=== PATIENT | female | born 1985 ===

== ENCOUNTER → 2017-01-12 | Outpatient (CLI) | payer MEDICAID | LOC: FIMAGING 08:44 | PROVIDERS: ATTEND Obstetrics & Gynecology | DX: O09.33 Supervision of pregnancy with insufficient antenatal care, third trimester (principal); O99.333 Smoking (tobacco) complicating pregnancy, third trimester; Z3A.30 30 weeks gestation of pregnancy; Z82.79 Family history of other congenital malformations, deformations and chromosomal abnormalities ==

== ENCOUNTER 2017-03-05 22:45 | Inpatient (IN) | payer MEDICAID ==
[2017-03-05] MEDS ORDERED: OXYTOCIN/RINGERS LACTATE 20 UNIT/1,000 ML BAG IV ONE (23:03)
[2017-03-05] MEDS ORDERED: TERBUTALINE SULFATE 1 MG/ML VIAL IV PRN (23:07)
[2017-03-05] MEDS ORDERED: OXYTOCIN/RINGERS LACTATE 1,000 ML IV PRN (23:07)
[2017-03-05] MEDS ORDERED: EPSOM SALT 454 GM TP PRN (23:07)
[2017-03-05] MEDS ORDERED: LR 1,000 ML IV PRN (23:07)
[2017-03-05] MEDS ORDERED: OLIVE OIL 118 ML BTL MISC PRN (23:07)
[2017-03-05 23:23] LABS: % IMMATURE GRANULYOCYTES 0.7 % (0.0-1.1); ABSOLUTE IMMATURE GRANULOCYTES 0.11 10^3/uL (0.00-0.10); ADD DIFF? NO; ADD MORPH? NO; ADD SCAN? NO; ATYPICAL LYMPHOCYTE FLAG 10 (0-99); FRAGMENT RBC FLAG 0 (0-99); HEMATOCRIT 35.8 % (38.0-47.0); HEMOGLOBIN 12.4 g/dL (12.6-16.3); LEFT SHIFT FLG 0 (0-99); LIPEMIA HEMOLYSIS FLAG 90 (0-99); MEAN CELL HEMOGLOBIN 30.2 pg (27.9-34.1); MEAN CELL HEMOGLOBIN CONCENTR. 34.6 g/dL (32.4-36.7); MEAN CELL VOLUME 87.1 fL (81.5-99.8); MEAN PLATELET VOLUME 12.6 fL (8.7-11.7); PLATELET CLUMPS FLAG 0 (0-99); PLATELET COUNT 174 10^3/uL (150-400); RED BLOOD CELL COUNT 4.11 10^6/uL (4.18-5.33); RED CELL DISTRIBUTION WIDTH 12.5 % (11.5-15.2)
[2017-03-05] MEDS ORDERED: HYDROCORTISONE 0.5% CREAM TP PRN (23:51)
[2017-03-05] MEDS ORDERED: HYDROCODONE/APAP 5/325 TAB PO PRN (23:51)
[2017-03-05] MEDS ORDERED: SIMETHICONE 80 MG TAB CHEW PO PRN (23:51)
[2017-03-05] MEDS ORDERED: ACETAMINOPHEN 325 MG TAB PO PRN (23:51)
[2017-03-05] MEDS ORDERED: DOCUSATE SODIUM 100 MG CAP PO PRN (23:51)
--- NOTE | 2017-03-05 23:52 | OBDEL ---
Info Type: Vaginal GBS+: No Indications for Delivery: Spontaneous Labor Vaginal Delivery - Labor and Delivery Onset of Contractions Date: 03/05/17 Onset of Contractions Time: 21:30 Onset of Contractions Type: Spontaneous Rupture of Membranes Date: 03/05/17 Rupture of Membranes Time: 23:02 Rupture of Membranes Type: Artificial Amniotic Fluid Color: Clear Dilation Complete Date: 03/05/17 Dilation Complete Time: 23:21 Placenta Delivery Date: 03/05/17 Placenta Delivery Time: 23:38 Total Hours of Labor: 2 Non-surgical Procedures: Amniotomy Laceration: Other (Specify) (no lacerations, all intact) Vaginal Sponge Count Correct: Yes Vaginal Needle Count Correct: Yes Vaginal Sweep Performed: Yes EBL: 200 cc Delivery Events: None Delivery Comment: Pt presented to L&D and was 8/C/0. AROM completed. Baby delivered in LOP position and was placed on the maternal abdomen with a spontaneous cry noted. Delayed cord clamping x 1 minute, and then cord clamped x 2 and cut. Cord blood obtained. Placenta delivered and intact. Uterus massaged, IV pitocin given. Uterus firmed quickly and perineum/vagina/cervix all intact. Data [place] Delivery Date: 03/05/17 Delivery Time: 23:32 CIRO: 03/23/17 Gestational Age: 37 week(s) and 3 day(s) Sex of : Male Score (1 Min): 8 Score (5 Min): 9 ICD10 Worksheet Patient Problems: Problems Problem Status Onset (spontaneous vaginal delivery) Acute - ICD10 Problem Qualifiers (1) (spontaneous vaginal delivery)
--- NOTE | 2017-03-06 00:41 | GHP ---
[f rep st] HISTORY AND PHYSICAL DATE OF ADMISSION: 03/05/2017 CHIEF COMPLAINT: Painful contractions. HISTORY OF PRESENT ILLNESS: Patient is a 32-year-old 4, para 2-1-0-3 female at 37 weeks and 3 days estimated gestational age, who presents to Labor and Delivery with complaints of painful con tractions that are increasing in intensity and frequency. She reports her contractions are currentl y every few minutes. She denies any leakage of fluid or vaginal bleeding and reports good mov ement. She just started rosalia about 9:30 p.m. the day of admission. Her prior delivery was s o quick that she delivered at home. No other complaints. PAST MEDICAL HISTORY: Tobacco use. PAST SURGICAL HISTORY: Tonsillectomy and repair of facial laceration. SOCIAL HISTORY: Patient reports smoking 5-7 cigarettes a day, history of late care and bob rt interval . Patient has a long-term partner with 6 other children at [facility] and [facility] partner's children. PAST OBSTETRICAL HISTORY: Spontaneous vaginal delivery x3 in 2004, 2007, and 2015. One del jaclyn at 35 weeks that was small for gestational age. CARE: Significant for late presentation to care at 29 weeks, dates based on a 29-week ultr asound. LABORATORIES: Blood type O positive, antibody screen negative, RPR nonreactive, gonorrhea and chlamydia negative, hepatitis B surface antigen negative, HIV negative, rubella immune, varicell a immune, and GBS negative. PHYSICAL EXAMINATION: VITAL SIGNS: Blood pressure 123/64, heart rate 83, temperature 36.6 degree C elsius. heart rate tracing 140s to 150s with accelerations and moderate variability present and no dec elerations. Tocometer contractions every 3-4 minutes. GENERAL: Mild distress due to pain. PELVIC: Cervix 8-9 cm, completely effaced, and 0 station with a bulging bag. ASSESSMENT: Patient is a 32-year-old 4, para 2-1-0-3 female at 37 weeks and 3 days estimate d gestational age, who presented in active labor and progressed quickly to delivery. PLAN: 1. Admit for continued care. 2. Rh positive and rubella immune. 3. Nursery staff notified to monitor baby due to her late presentation to care and history of SGA a nd tobacco use. /[id number]/MODL
[2017-03-06] MEDS: IBUPROFEN 600 MG TAB PO PRN ×3 (00:58→18:07)
[2017-03-06 06:37] VITALS: RESP 16
--- NOTE | 2017-03-06 08:05 | OBPP ---
Progress Note Assessment/Plan: Assessment: 32 y.o. s/p PPD #1. Fatigued with mild cramping. Bottlefeeding. Plan: Routine orders and care. Anticipate discharge tomorrow. 03/06/17 08:02 32 y Subjective: Reports feeling very fatigued. Bottlefeeding. Eating and drinking well without n/v. Good pain control with small vaginal bleeding. Ambulating without vertigo. Partner present at bedside. Objective: 03/05/17 23:00 Patient ABO/Rh O POSITIVE 03/05/17 23:00 Temp Pulse Resp BP Pulse Ox 35.8 C L 71 16 110/69 96 03/06/17 05:45 03/06/17 05:45 03/06/17 05:45 03/06/17 05:45 03/06/17 05:45 Uterine Position/Fundal Height: Umbilicus -1, Midline Uterine Tone: Firm Physical Exam - Physical Exam General Appearance: WD/WN, alert, no apparent distress EENT: normal ENT inspection Neck: non-tender, full range of motion, normal inspection Respiratory: lungs clear, normal breath sounds Cardiac/Chest: regular rate, rhythm Abdomen: non-tender, soft Extremities: normal range of motion, non-tender, normal inspection Back: Normal inspection Skin: normal color, warm/dry Neuro/Psych: alert, normal mood/affect, oriented x 3
[2017-03-07] MEDS: IBUPROFEN 600 MG TAB PO PRN ×2 (05:26→11:56)
--- NOTE | 2017-03-07 07:47 | OBGCSDC ---
General Delivery Information - General Info : 4 Para: 4 Delivery Physician/CNM: Aleida Augustine Admission Date: 03/05/17 Labs: Patient ABO/Rh O POSITIVE 03/05/17 23:00 Hct 35.8 % (38.0-47.0) L 03/05/17 23:00 Vaginal - Diagnosis Labor: Spontaneous Rupture of Membranes Type: Artificial Amniotic Fluid Color: Clear Laceration: Other (Specify) (no lacerations, all intact) Delivery Events: None - Operations/Procedures Non-surgical Procedures: Amniotomy L&D Analgesia/Anesthesia Type: None - Delivery Non-surgical Procedures: Amniotomy L&D Analgesia/Anesthesia Type: None Data [place] Delivery Date: 03/05/17 Delivery Time: 23:32 CIRO: 03/23/17 Gestational Age: 37 week(s) and 5 day(s) Sex of Infant: Male Weight (gm): 2660 g Score (1 Min): 8 Score (5 Min): 9 Discharge Information - Discharge Information Discharge Medications: Ibuprofen, Oxycodone, Vitamins Condition: Good Instruction/Follow Up: Six Weeks Discharge Physician/CNM: Emiliana Avina
[2017-03-07 09:18] VITALS: BP 123/83; PULSE 89; TEMP 97.5; O2SAT 98
== END 2017-03-07 12:30 | disposition home or self-care (01) | DRG 775 ==
LOC: OBSVTOIN 22:45 → FLD 22:45 → FOB 03-06 01:24
PROVIDERS: ADMIT Obstetrics & Gynecology; ATTEND Obstetrics & Gynecology
DX: O99.333 Smoking (tobacco) complicating pregnancy, third trimester (principal); O09.33 Supervision of pregnancy with insufficient antenatal care, third trimester; F17.210 Nicotine dependence, cigarettes, uncomplicated; Z3A.37 37 weeks gestation of pregnancy; Z37.0 Single live birth
CPT/HCPCS: J2590